=== PATIENT | female | born 1965 ===

== ENCOUNTER 2024-01-16 14:47 | Emergency (ER) | payer BC ==
[2024-01-16 16:30] LABS: #Basophils 0.03 10x3/uL (0.0-0.2); %Basophils 0.4 % (0.0-1.0); %Eosinophils 1.7 % (0.0-10.0); %Lymphocytes 8.5 % (21.0-51.0); %Monocytes 3.8 % (0.0-10.0); %Neutrophils 85.3 % (42.0-75.0); Hematocrit 42.8 % (36.0-47.0); Mean Corpuscular HGB CONC 32.7 g/dL (32.0-36.0); Mean Corpuscular Hemoglobin 28.6 pg (27.0-31.0); Mean Corpuscular Volume 87.3 fL (78.0-98.0); Mean Platelet Volume 9.5 fL (7.4-10.4); Platelet Count 155 10x3/uL (130-400)
[2024-01-16] MEDS ORDERED: Acetaminophen 500 MG TAB ONE (16:34)
[2024-01-16 16:47] LABS: ALT (SGPT) 20 U/L (8-55); AST (SGOT) 27 U/L (5-34); Alkaline Phosphatase 76 U/L (40-110); Anion Gap 13 mmol/L (10-20); BUN (Urea Nitrogen) 10 mg/dL (9.8-20.1); Bilirubin, Total 0.6 mg/dL (0.2-1.2); Calc. Creatinine Clearance 0 mL/min (70-130); Calcium 8.7 mg/dL (7.8-10.44); Carbon Dioxide 23 mmol/L (22-29); Chloride 105 mmol/L (98-107); Estimated GFR 73; Globulin 2.9 g/dL (2.4-3.5); Glucose 92 mg/dL (70-105); Potassium 3.5 mmol/L (3.5-5.1); Protein, Total 6.9 g/dL (6.0-8.3); Sodium 137 mmol/L (136-145)
[2024-01-16 16:50] LABS: Troponin I Less than 0.010 ng/mL (< 0.028)
[2024-01-16] MEDS ORDERED: Ondansetron PF 4 MG/2 ML Vial ONE (17:19)
== END 2024-01-16 18:42 | disposition home or self-care (01) ==
LOC: ERS 14:47
DX: S06.9X9A Unspecified intracranial injury with loss of consciousness of unspecified duration, initial encounter (principal); R19.7 Diarrhea, unspecified; W01.10XA Fall on same level from slipping, tripping and stumbling with subsequent striking against unspecified object, initial encounter
CPT/HCPCS: 36415; 70450; 71045; 72125; 80053; 84484; 85025; 93005; 96374; J2405